=== PATIENT | male | born 1960 | race Caucasian/White ===

== ENCOUNTER 2017-12-11 11:54 | Emergency (ER) | payer MEDICAID ==
[2017-12-11 11:54] VITALS: BMI 21.6
[2017-12-11] MEDS ORDERED: Moxifloxacin IV 400mg/250ml NS 400 MG/250 ML BAG IVPB STA (12:38)
[2017-12-11] MEDS ORDERED: levoFLOXacin 500 mg in D5W 500 MG/100 ML BAG IVPB ONE ×2 (12:41→14:16)
--- NOTE | 2017-12-11 12:48 | ED PDOC ---
HPI: General Adult Time Seen by Provider: 12/11/17 12:22 Chief Complaint (Nursing): Cough, Cold, Congestion Chief Complaint (Provider): Cough, Cold, Congestion History Per: Patient History/Exam Limitations: no limitations Onset/Duration Of Symptoms: Days Current Symptoms Are (Timing): Still Present Additional Complaint(s): 57 year old male with a past medical history of asthma and human immunodeficiency virus (HIV) who presents to the emergency department with a cough, sputum, shortness of breath, and fever for a couple of days. Reports he went to [facility] on 12/07/2017, had blood work done, x-rays, CT scans, diagnosed with pneumonia, and prescribed antibiotics Patient was signed out against medical advice the next day because he did not get a bed so he was sent home with Zithromax. States he is here now because he is still coughing with a low grade temperature. Denies any further medical complaints. Past Medical History Reviewed: Historical Data, Nursing Documentation, Vital Signs Vital Signs: Last Vital Signs Temp 100.0 F H 12/11/17 12:13 Pulse 123 H 12/11/17 12:13 Resp 22 12/11/17 12:13 BP 150/81 12/11/17 12:13 Pulse Ox 96 12/11/17 14:14 - Medical History PMH: Asthma, Hepatitis (C), HIV, Pneumonia Denies: Kidney Stones, Chronic Kidney Disease - Family History Family History: States: Unknown Family Hx - Social History Current smoker - smoking cessation education provided: Yes (2-3 cigarettes daily ) - Immunization History Hx Tetanus Toxoid Vaccination: No Hx Influenza Vaccination: No Hx Pneumococcal Vaccination: No - Home Medications Home Medications: Ambulatory Orders Medication Instructions Recorded Albuterol HFA [Ventolin HFA 90 2 puff IH Q4 PRN #1 unit 11/16/16 mcg/actuation (8 g)] Albuterol 0.5% [Albuterol 0.5% 0.5 ml IH Q6 PRN #20 neb 10/11/17 Inhal Joy (2.5 mg/0.5 ml) UD] Emtricitabine/Tenofovir Diso 1 tab PO DAILY 12/11/17 [Truvada 200 MG-300 MG] Guaifenesin/Pseudoephedrne HCl 1 ter PO Q12H PRN #20 ter 12/11/17 [Mucinex D 600 mg-60 mg] Raltegravir Potassium [Isentress] 400 mg PO DAILY 12/11/17 Sulfamethoxazole/Trimethoprim 1 tab PO BID #20 tab 12/11/17 [Bactrim DS 800 mg-160 mg] - Allergies Allergies/Adverse Reactions: Allergies Allergy/AdvReac Type Severity Reaction Status Date / Time No Known Allergies Allergy Verified 06/30/17 11:11 Review of Systems ROS Statement: Except As Marked, All Systems Reviewed And Found Negative (As per HPI, otherwise negative) Constitutional: Positive for: Fever Respiratory: Positive for: Cough, Shortness of Breath, Sputum Physical Exam - Reviewed Nursing Documentation Reviewed: Yes Vital Signs Reviewed: Yes - Physical Exam Appears: Positive for: No Acute Distress Head Exam: Positive for: NORMAL INSPECTION Skin: Positive for: Normal Color, Warm, Dry Neck: Positive for: Normal, Supple Cardiovascular/Chest: Positive for: Regular Rate, Rhythm. Negative for: Murmur Respiratory: Positive for: Decreased Breath Sounds (Slightly), Wheezing (High pitch scattered wheezing bilaterally), Other (Slightly tachypneic). Negative for: Normal Breath Sounds, Accessory Muscle Use, Respiratory Distress Gastrointestinal/Abdominal: Positive for: Normal Exam, Soft. Negative for: Tenderness Extremity: Positive for: Normal ROM. Negative for: Pedal Edema Neurologic/Psych: Positive for: Alert, Oriented (x3) - Laboratory Results Result Diagrams: 12/11/17 12:45 12/11/17 12:45 - ECG O2 Sat by Pulse Oximetry: 96 (RA) Pulse Ox Interpretation: Normal Medical Decision Making Medical Decision Making: Time: 1237 Initial Impression: Pneumonia and asthma; repeat blood work and labs Initial Plan: --VBG --CMP --Urine DIP --CBC w. diff --Chest x-ray --Levofloxacin 500 mg IVPB --Blood Culture --Reevaluation Time: 1318 --Chest x-ray FINDINGS: LUNGS: Multifocal right upper lobe irregular opacity. Suspect pneumonia. Followup to clearing to rule out underlying neoplasm. Mild pulmonary hyperinflation. Possible emphysema. PLEURA: No significant pleural effusion identified. No pneumothorax apparent. CARDIOVASCULAR: Normal. OSSEOUS STRUCTURES: No significant abnormalities. VISUALIZED UPPER ABDOMEN: Normal. OTHER FINDINGS: None. IMPRESSION: Multifocal right upper lobe opacity. Possible pneumonia. Followup advised to rule out underlying neoplasm. Scribe Attestation: Documented by Elmira Amezquita, acting as a scribe for Thao Amezcua MD. Provider Scribe Attestation: All medical record entries made by the Scribe were at my direction and personally dictated by me. I have reviewed the chart and agree that the record accurately reflects my personal performance of the history, physical exam, medical decision making, and the department course for this patient. I have also personally directed, reviewed, and agree with the discharge instructions and disposition. x-rays reviewed. labs reviewed. both compared to x-rays and labs from 3-4 days ago. No significant difference. Will give me a course of Bactrim and have him follow up with Dr. Weller. Disposition - Clinical Impression Clinical Impression: Pneumonia - Patient ED Disposition Is Patient to be Admitted: No Doctor Will See Patient In The: Office Counseled Patient/Family Regarding: Diagnosis, Need For Followup, Rx Given - Disposition Referrals: Addy Weller MD [Staff Provider] - [facility] [Outside] Disposition: Routine/Home Disposition Time: 14:31 Condition: STABLE Prescriptions: Guaifenesin/Pseudoephedrne HCl [Mucinex D 600 mg-60 mg] 1 ter PO Q12H PRN #20 ter PRN Reason: cough/congestion Sulfamethoxazole/Trimethoprim [Bactrim DS 800 mg-160 mg] 1 tab PO BID #20 tab Instructions: Bacterial Pneumonia (ED), HIV Infection (ED) Forms: [facility] ([place]i)
[2017-12-11 13:09] LABS: BASO % 0.2 % (0.0-2.0); EOS % 0.6 % (0.0-4.0); HEMOGLOBIN 11.8 g/dL (12.0-18.0); LYMPH # 0.7 K/uL (1.0-4.3); LYMPH % 11.3 % (20.0-40.0); MEAN CELL VOLUME 86.3 fl (80.0-94.0); MEAN CORPUSCULAR HEMOGLOBIN 29.2 pg (27.0-31.0); MEAN CORPUSCULAR HGB CONC 33.9 g/dL (33.0-37.0); MEAN PLATELET VOLUME 8.5 fl (7.2-11.7); MONO # 0.5 K/uL (0.0-0.8); MONO % 8.4 % (0.0-10.0); NEUT # 4.8 K/uL (1.8-7.0); NEUT % 79.5 % (50.0-75.0); RBC 4.04 Mil/uL (4.40-5.90); RED CELL DISTRIBUTION WIDTH 14.2 % (11.5-14.5)
--- NOTE | 2017-12-11 13:20 | RAD ---
HISTORY: cough COMPARISON: 05/31/2011 TECHNIQUE: Chest PA and lateral FINDINGS: LUNGS: Multifocal right upper lobe irregular opacity. Suspect pneumonia. Followup to clearing to rule out underlying neoplasm. Mild pulmonary hyperinflation. Possible emphysema. PLEURA: No significant pleural effusion identified. No pneumothorax apparent. CARDIOVASCULAR: Normal. OSSEOUS STRUCTURES: No significant abnormalities. VISUALIZED UPPER ABDOMEN: Normal. OTHER FINDINGS: None. IMPRESSION: Multifocal right upper lobe opacity. Possible pneumonia. Followup advised to rule out underlying neoplasm.
[2017-12-11 13:24] LABS: VENOUS BLOOD GAS BASE EXCESS -0.7 mmol/L (0.0-2.0); VENOUS BLOOD GAS PCO2 36 mmHg (40-60); VENOUS BLOOD GAS PO2 43 mm/Hg (30-55); VENOUS BLOOD PH 7.42 (7.32-7.43)
[2017-12-11 13:27] LABS: ALB/GLOB RATIO 0.8 (1.0-2.1); ALBUMIN 3.8 g/dL (3.5-5.0); ALT/SGPT 61 U/L (21-72); AST/SGOT 80 U/L (17-59); BLOOD UREA NITROGEN 17 mg/dl (9-20); CALCIUM 8.6 mg/dL (8.4-10.2); GFR AFRICAN-AMERICAN > 60; GFR NON-AFRICAN AMERICAN > 60
[2017-12-11 15:20] VITALS: BP 114/76; PULSE 102; RESP 18; TEMP 98.7; O2SAT 94
== END 2017-12-11 15:18 | disposition home or self-care (01) ==
LOC: H.ER 11:54
DX: J15.9 Unspecified bacterial pneumonia (principal); B20 Human immunodeficiency virus [HIV] disease; J45.909 Unspecified asthma, uncomplicated

== ENCOUNTER 2018-03-31 11:03 | Emergency (ER) | payer MEDICAID ==
[2018-03-31 11:23] VITALS: BMI 22.4
[2018-03-31 11:24] VITALS: TEMP 99
[2018-03-31 11:34] VITALS: O2SAT 98
[2018-03-31] MEDS ORDERED: Albuterol-Ipratrop 3 mg / 0.5 (3 ml) UD INH STA (11:53)
[2018-03-31] MEDS ORDERED: Sodium Chloride 0.9% 1,000 ML IV STA (11:55)
[2018-03-31 12:27] LABS: BASO % 0.3 % (0.0-2.0); EOS % 0.2 % (0.0-4.0); HEMOGLOBIN 12.4 g/dL (12.0-18.0); LYMPH # 1.4 K/uL (1.0-4.3); LYMPH % 16.3 % (20.0-40.0); MEAN CELL VOLUME 89.1 fl (80.0-94.0); MEAN CORPUSCULAR HEMOGLOBIN 29.5 pg (27.0-31.0); MEAN CORPUSCULAR HGB CONC 33.1 g/dL (33.0-37.0); MEAN PLATELET VOLUME 7.8 fl (7.2-11.7); MONO # 0.5 K/uL (0.0-0.8); MONO % 6.1 % (0.0-10.0); NEUT # 6.5 K/uL (1.8-7.0); NEUT % 77.1 % (50.0-75.0); RBC 4.21 Mil/uL (4.40-5.90); RED CELL DISTRIBUTION WIDTH 13.3 % (11.5-14.5); WHITE BLOOD COUNT 8.4 K/uL (4.8-10.8)
[2018-03-31 12:29] LABS: ABG ALLEN TEST YES; ARTERIAL BLOOD GAS HCO3 26.2 mmol/L (21-28); ARTERIAL BLOOD GAS O2 SAT 98.5 % (95-98); ARTERIAL BLOOD GAS PCO2 37 mm/Hg (35-45); ARTERIAL BLOOD GAS PH 7.45 (7.35-7.45); ARTERIAL BLOOD GAS PO2 72 mm/Hg (80-100); ARTERIAL BLOOD GAS TCO2 26.8 mmol/L (22-28)
[2018-03-31 12:36] LABS: BLOOD UREA NITROGEN 15 mg/dl (9-20); GFR AFRICAN-AMERICAN > 60; GFR NON-AFRICAN AMERICAN > 60
[2018-03-31] MEDS ORDERED: Albuterol-Ipratrop 3 mg / 0.5 (3 ml) UD ONE (12:48)
--- NOTE | 2018-03-31 12:49 | ED PDOC ---
HPI: Influenza Time Seen by Provider: 03/31/18 11:39 Chief Complaint: Cough, Cold, Congestion History Per: Patient (this is a 57 yo HIV+ gentleman who presents to the ER because of fever, productive cough, and chills for the past 4 days. States that the phlegm is greenish consistently. There is no nausea or vomiting. He is not vomiting and does not have nausea) Past Medical History Reviewed: Historical Data, Nursing Documentation, Vital Signs Vital Signs: Last Vital Signs Temp 99 F 03/31/18 11:23 Pulse 97 H 03/31/18 11:23 Resp 20 03/31/18 11:23 BP 105/64 03/31/18 11:23 Pulse Ox 98 03/31/18 11:32 - Medical History PMH: Asthma, Hepatitis (C), HIV, Pneumonia Denies: Kidney Stones, Chronic Kidney Disease - Surgical History Surgical History: No Surg Hx - Family History Family History: States: Unknown Family Hx - Living Arrangements Living Arrangements: With Family - Social History Current smoker - smoking cessation education provided: Yes Alcohol: Social Drugs: Cannabis - Immunization History Hx Tetanus Toxoid Vaccination: No Hx Influenza Vaccination: No Hx Pneumococcal Vaccination: No - Home Medications Home Medications: Ambulatory Orders Medication Instructions Recorded Albuterol HFA [Ventolin HFA 90 2 puff IH Q4 PRN #1 unit 11/16/16 mcg/actuation (8 g)] Albuterol 0.5% [Albuterol 0.5% 0.5 ml IH Q6 PRN #20 neb 10/11/17 Inhal [place]jy (2.5 mg/0.5 ml) UD] Emtricitabine/Tenofovir Diso 1 tab PO DAILY 12/11/17 [Truvada 200 MG-300 MG] Guaifenesin/Pseudoephedrne HCl 1 ter PO Q12H PRN #20 ter 12/11/17 [Mucinex D 600 mg-60 mg] Raltegravir Potassium [Isentress] 400 mg PO DAILY 12/11/17 Sulfamethoxazole/Trimethoprim 1 tab PO BID #20 tab 12/11/17 [Bactrim DS 800 mg-160 mg] Ibuprofen [Motrin] 600 mg PO TID #15 tab 03/23/18 Sulfamethoxazole/Trimethoprim 1 each PO BID #14 tablet 03/31/18 [Bactrim Ds Tablet] - Allergies Allergies/Adverse Reactions: Allergies Allergy/AdvReac Type Severity Reaction Status Date / Time No Known Allergies Allergy Verified 03/23/18 13:15 Review of Systems ROS Statement: Except As Marked, All Systems Reviewed And Found Negative Constitutional: Positive for: Fever, Chills Respiratory: Positive for: Cough, Sputum (greenish). Negative for: Hemoptysis Gastrointestinal: Negative for: Nausea, Vomiting Genitourinary Male: Negative for: Dysuria Physical Exam - Reviewed Nursing Documentation Reviewed: Yes Vital Signs Reviewed: Yes - Physical Exam Appears: Positive for: Well, Non-toxic, No Acute Distress Head Exam: Positive for: ATRAUMATIC, NORMAL INSPECTION, NORMOCEPHALIC Skin: Positive for: Normal Color, Warm, DRY Eye Exam: Positive for: Normal appearance ENT: Positive for: Normal ENT Inspection Neck: Positive for: Normal Cardiovascular/Chest: Positive for: Regular Rate, Rhythm Respiratory: Positive for: Decreased Breath Sounds, Wheezing (scattered) Gastrointestinal/Abdominal: Positive for: Normal Exam, Soft Back: Positive for: Normal Inspection Extremity: Positive for: Normal ROM Neurologic/Psych: Positive for: Alert, Oriented - Laboratory Results Result Diagrams: 03/31/18 12:10 03/31/18 12:10 - ECG O2 Sat by Pulse Oximetry: 98 - Radiology X-Ray: Read By Radiologist X-Ray Interpretation: No Acute Disease Disposition - Clinical Impression Clinical Impression: Bronchitis - Patient ED Disposition Is Patient to be Admitted: No Doctor Will See Patient In The: Office Counseled Patient/Family Regarding: Diagnosis, Need For Followup, Rx Given - Disposition Referrals: Addy Weller MD [Staff Provider] - Disposition: Routine/Home Disposition Time: 14:54 Condition: IMPROVED Prescriptions: Sulfamethoxazole/Trimethoprim [Bactrim Ds Tablet] 1 each PO BID #14 tablet Instructions: Acute Bronchitis Forms: [facility] (Korean) - POA Present On Arrival: None
--- NOTE | 2018-03-31 13:08 | RAD ---
HISTORY: 4 days of cough, phlegm, fever, sweats, HIV COMPARISON: Chest radiograph dated 12/11/2017. TECHNIQUE: Chest PA and lateral FINDINGS: LUNGS: Improved right upper lobe aeration with residual peripheral and subpleural opacity. PLEURA: No significant pleural effusion identified. No pneumothorax apparent. CARDIOVASCULAR: Normal. OSSEOUS STRUCTURES: Unchanged. VISUALIZED UPPER ABDOMEN: Normal. OTHER FINDINGS: None. IMPRESSION: Improved right upper lobe aeration with residual peripheral and subpleural opacity. Follow-up to resolution. Alternatively, CT scan can be obtained for further evaluation.
[2018-03-31 15:16] VITALS: BP 126/79; PULSE 75; RESP 18
== END 2018-03-31 15:05 | disposition home or self-care (01) ==
LOC: H.ER 11:03
DX: J40 Bronchitis, not specified as acute or chronic (principal); F17.200 Nicotine dependence, unspecified, uncomplicated; J45.909 Unspecified asthma, uncomplicated; B18.2 Chronic viral hepatitis C; B20 Human immunodeficiency virus [HIV] disease
CPT/HCPCS: 71046; 80048; 82803; 85025; 87040; 94150; 94640; 96360; 99284; J7030